=== PATIENT | male | born 1985 | race Two or more races ===

== ENCOUNTER 2018-05-29 01:55 | Emergency (ER) | payer SELFPAY ==
[2018-05-29 02:11] VITALS: BMI 25.8
[2018-05-29 02:14] VITALS: RESP 18
[2018-05-29] MEDS ORDERED: Sodium Chloride 0.9% 1,000 ML IV STA (02:41)
--- NOTE | 2018-05-29 03:03 | ED PDOC ---
HPI: Psych/Substance Abuse Time Seen by Provider: 05/29/18 02:10 Chief Complaint (Nursing): Alcohol Ingestion Chief Complaint (Provider): Alcohol Ingestion ED Caveat: Intoxicated History Per: EMS History/Exam Limitations: intoxication Current Symptoms Are (Timing): Still Present Modifying Factor(s): Alcohol Additional Complaint(s): 32 year old male with pmHx of HIV, arrives to ED via EMS for an evaluation of alcohol intoxication. Patient was found in public with slurred speech and unsteady gait. Unable to obtain further medical history secondary to current clinical condition. PCP: none provided Past Medical History Reviewed: Historical Data, Nursing Documentation, Vital Signs Vital Signs: Last Vital Signs Temp 98.9 F 05/29/18 02:11 Pulse 89 05/29/18 02:11 Resp 18 05/29/18 02:11 BP 155/105 H 05/29/18 02:11 Pulse Ox 97 05/29/18 02:11 - Medical History PMH: HIV - Family History Family History: States: Unknown Family Hx - Allergies Allergies/Adverse Reactions: Allergies Allergy/AdvReac Type Severity Reaction Status Date / Time No Known Allergies Allergy Verified 05/29/18 02:11 Review of Systems Review Of Systems: ROS cannot be obtained secondary to pt's inabilty to answer questions. Physical Exam - Reviewed Nursing Documentation Reviewed: Yes Vital Signs Reviewed: Yes - Physical Exam Appears: Positive for: No Acute Distress Head Exam: Positive for: ATRAUMATIC, NORMAL INSPECTION, NORMOCEPHALIC Skin: Positive for: Normal Color Eye Exam: Positive for: Normal appearance ENT: Positive for: Normal ENT Inspection Neck: Positive for: Normal Cardiovascular/Chest: Positive for: Regular Rate, Rhythm, Chest Non Tender Respiratory: Positive for: Normal Breath Sounds. Negative for: Wheezing, Respiratory Distress Gastrointestinal/Abdominal: Positive for: Normal Exam, Soft. Negative for: Tenderness Extremity: Positive for: Normal ROM (upper/lower) Neurologic/Psych: Positive for: Gait (unsteady), Other ((+)AOB; slurred speech). Negative for: Aphasia - Laboratory Results Result Diagrams: 05/29/18 03:00 05/29/18 03:00 - ECG O2 Sat by Pulse Oximetry: 97 (RA) Pulse Ox Interpretation: Normal Medical Decision Making Medical Decision Making: Initial Impression: 32 year old male with alcohol intoxication. Initial Plan: * Labs * IV fluids * Zofran 4mg IV * Accucheck Time: 305 --Accucheck: 93mg/dL. Time: 451 --Labs reviewed: elevated alcohol quantity at > 300 mg/dL, otherwise, no significant clinical abnormality. Upon provider reevaluation, patient is medically stable for discharge home accompanied by his girlfriend. He is awake, alert, and walking with steady gait. Counseling was provided and all questions were answered regarding diagnosis. There is agreement to discharge plan. Return if symptoms persist or worsen. Clinical Impression: Alcohol abuse with intoxication Scribe Attestation: Documented by Oumou Pedro, acting as a scribe for Yaya Kraus MD. Provider Scribe Attestation: All medical record entries made by the Scribe were at my direction and personally dictated by me. I have reviewed the chart and agree that the record accurately reflects my personal performance of the history, physical exam, medical decision making, and the department course for this patient. I have also personally directed, reviewed, and agree with the discharge instructions and disposition. Disposition - Clinical Impression Clinical Impression: Alcohol abuse with intoxication - Patient ED Disposition Is Patient to be Admitted: No Counseled Patient/Family Regarding: Studies Performed, Diagnosis - Disposition Disposition: Routine/Home Disposition Time: 04:52 Condition: STABLE Instructions: Effects of Alcohol on Your Health Forms: [employer] ([place])
[2018-05-29 03:57] LABS: BASO # 0.1 K/uL (0.0-0.2); EOS % 0.6 % (0.0-4.0); HEMOGLOBIN 15.9 g/dL (12.0-18.0); LYMPH # 1.6 K/uL (1.0-4.3); LYMPH % 22.1 % (20.0-40.0); MEAN CELL VOLUME 98.4 fl (80.0-94.0); MEAN CORPUSCULAR HEMOGLOBIN 32.4 pg (27.0-31.0); MEAN CORPUSCULAR HGB CONC 32.9 g/dL (33.0-37.0); MEAN PLATELET VOLUME 6.8 fl (7.2-11.7); MONO # 0.6 K/uL (0.0-0.8); MONO % 7.9 % (0.0-10.0); NEUT # 4.9 K/uL (1.8-7.0); NEUT % 68.4 % (50.0-75.0); NRBC % 0.5 % (0.0-0.0); RBC 4.91 Mil/uL (4.40-5.90); RED CELL DISTRIBUTION WIDTH 12.4 % (11.5-14.5); WHITE BLOOD COUNT 7.2 K/uL (4.8-10.8)
[2018-05-29 04:29] LABS: ALB/GLOB RATIO 1.4 (1.0-2.1); ALBUMIN 4.6 g/dL (3.5-5.0); ALT/SGPT 37 U/L (21-72); AST/SGOT 36 U/L (17-59); BLOOD UREA NITROGEN 10 mg/dl (9-20); CALCIUM 9.1 mg/dL (8.4-10.2); GFR NON-AFRICAN AMERICAN > 60
[2018-05-29 05:12] VITALS: BP 138/85; PULSE 88; TEMP 98.2; O2SAT 99
== END 2018-05-29 05:11 | disposition home or self-care (01) ==
LOC: H.ER 01:55
DX: F10.129 Alcohol abuse with intoxication, unspecified (principal); Y90.8 Blood alcohol level of 240 mg/100 ml or more
CPT/HCPCS: 80053; 82948; 85025; 96360; 99284; G0480; J2405; J7030